=== PATIENT | female | born 1995 | race Caucasian/White ===

== ENCOUNTER 2016-12-07 12:30 | Emergency (ER) | payer OTHER ==
[~2016-12-07] VITALS: Ht 167.6 cm; Wt 69.8 kg
[2016-12-07 12:36] VITALS: BP 129/74
== END 2016-12-07 14:40 | disposition home or self-care (01) ==
LOC: ED 12:30
DX: S46.911A Strain of unspecified muscle, fascia and tendon at shoulder and upper arm level, right arm, initial encounter (principal); S29.012A Strain of muscle and tendon of back wall of thorax, initial encounter; V49.9XXA Car occupant (driver) (passenger) injured in unspecified traffic accident, initial encounter; Y93.89 Activity, other specified; Y99.8 Other external cause status; Y92.89 Other specified places as the place of occurrence of the external cause
CPT/HCPCS: Q0092

== ENCOUNTER 2018-11-11 20:36 | Emergency (ER) | payer OTHER ==
[~2018-11-11] VITALS: Ht 167.6 cm; Wt 76.2 kg
[2018-11-11 20:47] VITALS: Ht 167.6 cm; Wt 76.2 kg
[2018-11-11 22:30] VITALS: BP 124/60
== END 2018-11-11 22:30 | disposition home or self-care (01) ==
LOC: ED 20:36
DX: J02.0 Streptococcal pharyngitis (principal); R19.7 Diarrhea, unspecified
CPT/HCPCS: J0561; J1885

== ENCOUNTER 2019-08-17 12:14 | Emergency (ER) | payer MEDICAID ==
[~2019-08-17] VITALS: Ht 167.6 cm; Wt 80.3 kg
[2019-08-17 13:25] VITALS: Ht 167.6 cm; Wt 80.3 kg
[2019-08-17 15:28] VITALS: BP 130/80
== END 2019-08-17 15:28 | disposition home or self-care (01) ==
LOC: ED 12:14
DX: J02.9 Acute pharyngitis, unspecified (principal)
CPT/HCPCS: J0561; J1100